=== PATIENT | male | born 1975 | race Caucasian/White ===

== ENCOUNTER → 2021-04-27 | Day surgery (SDC) | payer OTHER ==
[~2021-04-27] MED LIST: BUPIVACAINE-EPI 0.25%-1:200000 MPF 30 ML VIAL. ONE; LIDOCAINE 1%/EPI 1:100,000 20 ML VIAL. ONE; meloxicam; wellbutrin
--- NOTE | 2021-04-27 08:18 | PDOC4 ---
Operative Report DATE April 272020 at 816 Preop Diagnosis Right abdominal subcutaneous lipoma Post-op Diagnosis Same Operation Performed Excision of abdominal lipoma Patient is a 46-year-old male with complaints of enlarging mass in his right abdomen and the subcutaneous space occasionally is painful. Procedure of excision was explained to the patient detail risk-benefit were also discussed occluding bleeding infection alternatives this procedure also discussed with patient who seemed to understand and gave a verbal written consent to have procedure performed. Patient was taken to the minor's room placed in the supine positioning his abdomen was prepped and draped usual sterile fashion using ChloraPrep area around the mass was injected with quarter percent Marcaine with epinephrine incision was then made with 15 blade scalpel through the skin is carried down through subcutaneous tissue to the lipoma was visualized was excised sharply with Metzenbaum scissors and sent for pathology. Size of the mass was 2.2 cm with a 1 cm margin. Wound was then closed in a single layer 4-0 subcuticular Monocryl Mastisol Steri-Strips and island dressing were applied. Patient tolerated procedure and was discharged home in stable condition. All sponge instrument needle counts listed as correct estimated blood loss less than 5 mL Surgeon Donny ANESTHESIA PROPOSED: LOCAL Blood Loss 5 mL Specimen 2.2 cm lipomatous mass Complications None PORTIA MENA MD Apr 27, 2021 08:18
--- NOTE | 2021-04-27 08:19 | DISCH ---
DISCHARGE INSTRUCTIONS-DC Condition on Discharge Condition on Discharge: Stable Activity after Discharge Activity Instructions for Disc: No restrictions Diet after Discharge Diet after Discharge: Regular Wound/Incision Care Other wound/incision instructi: May shower in 24 hours Contacting the DRTiny after DC Call your doctor for: If your condition worsens Follow-Up Follow up with: Dr. Mena 2 weeks PORTIA MENA MD Apr 27, 2021 08:19
[2021-04-27 08:30] VITALS: BP 112/68
--- NOTE | 2021-04-29 17:09 | PATHOLOGY ---
[facility] Accession Number: [id number] . 01 Material submitted: . abdomen - ABDOMINAL LIPOMA . 02 Diagnosis: Adipose tissue, abdominal lesion excision: - Lipoma. (CONCHITAM:tk; 04/29/2021) [facility] 04/29/2021 1217 Local . 02 Electronically signed: . Lloyd Alexander MD, Pathologist NPI- [id number] . 01 Gross description: . Fixative: Formalin Labeled: Abdominal lipoma Specimen received: Intact light carvalho-yellow lobular tissue Dimensions: 2.1 x 1.3 x 0.8 External surface: Light carvalho-yellow and smooth to roughened Cut surface: Light carvalho-yellow . Road Train Driver sections are submitted in A1. ([facility]; 04/28/2021) [facility] 04/28/2021 1059 Local . 02 Pathologist provided ICD-10: D17.1 . 02 CPT . 127108 Specimen Comment: A courtesy copy of this report has been sent to [phone] Specimen Comment: [id number] Specimen Comment: Report sent to / DR FRIAS Specimen Comment: A duplicate report has been generated due to demographic updates. Performed at: 01 [facility] [address], [place], [place] [id number] MD Han Fuentes MD Phone: [phone] Performed at: 02 [facility] [address], [place] [id number] MD Lloyd Alexander MD Phone: [phone]
== END | disposition home or self-care (01) ==
LOC: SURG 07:21
PROVIDERS: ATTEND Surgery
DX: D17.1 Benign lipomatous neoplasm of skin and subcutaneous tissue of trunk (principal); Z79.899 Other long term (current) drug therapy; Z72.89 Other problems related to lifestyle
CPT/HCPCS: 22903; J3490; 88304